=== PATIENT | female | born 2000 | race African-American/Black ===

== ENCOUNTER 2024-03-03 12:13 | Emergency (ER) | payer OTHER, SELFPAY ==
[2024-03-03 12:29] VITALS: BP 108/51; PULSE 81; RESP 16; TEMP 36.9; O2SAT 100; BMI 28.6
--- NOTE | 2024-03-03 12:37 | DI.US.S_ITS ---
PROCEDURE: US OB <= 14 WEEKS FETUS INDICATIONS: 12 wks preg, abd pain OUTSIDE/PRIOR DATING DATA: Last menstrual period (LMP): 12/07/2023. LMP-based estimated date of delivery (FAHEEM): 09/22/2024. First dating scan (date and location): 03/03/2024. Estimated date of delivery (FAHEEM) from first dating scan: 09/06/2024. TECHNIQUE: Real-time scanning was performed of the fetus and maternal pelvic organs, with image documentation. COMPARISON: None. FINDINGS: BPD: 2.1 cm, 13 week 2 day AC: 8.2 cm, 13 week 4 day HC: 6.8 cm, 13 week 3 day FL: 0.9 cm, 12 week 5 day EGA by dates: 12 week 3 day EGA by ultrasound: 13 week 2 day Heart rate: 160 beats per minute Maternal organs: Ovaries unremarkable. IMPRESSION: Single live intrauterine consistent with a 13 week 2 day gestation by current ultrasound Approved by: Alexi Brown M.D. on 03/03/2024 at 12:27
[2024-03-03 13:04] LABS: Add Manual Diff / Slide Review NO; Basophils Absolute Auto 0 /uL (0-100); Basophils Percent Auto 0.5 % (0-2); Eosinophils Absolute Auto 0 /uL (0-450); Eosinophils Percent Auto 0.1 % (2-4); Hematocrit 34.2 % (36-46); Hemoglobin 11.9 g/dL (12.0-16.0); Lymphocytes Absolute Auto 1300 /uL (1100-4500); Lymphocytes Percent Auto 39.3 % (25-40); Mean Corpuscular HGB Conc 34.7 % (30-36); Mean Corpuscular Hemoglobin 32.2 PG (26-34); Mean Corpuscular Volume 92.9 fL (80-100); Monocytes Absolute Auto 500 /uL (0-900); Monocytes Percent Auto 13.8 % (3-14); Neutrophils Absolute Auto 1500 /uL (1500-7000); Neutrophils Percent Auto 46.3 % (50-75); Platelet Count 248 X10^3/uL (150-400); Red Blood Cell Count 3.68 X10^6/uL (4.0-5.2); Red Cell Distribution Width 13.1 % (11.6-14.8); White Blood Cell Count 3.3 X10^3/uL (4.5-11.0)
[2024-03-03 13:16] LABS: Alanine Aminotransferase 17 IU/L (<35); Albumin 4.1 g/dL (3.5-5.0); Albumin Globulin Ratio 1.2 (1.0-2.8); Alkaline Phosphatase 75 U/L (38-126); Aspartate Aminotransferase 25 IU/L (14-36); BUN Creatinine Ratio 8.3 (6-22); Bilirubin Total 0.4 mg/dL (0.2-1.3); Blood Urea Nitrogen 4 mg/dL (7-17); Calcium 8.5 mg/dL (8.4-10.2); Carbon Dioxide 21 mmol/L (22-32); Chloride 106 mmol/L (98-107); Estimated Glomerular Filt Rate > 60 mL/min (>60); Globulin 3.3 g/dL (1.7-4.1); Glucose 71 mg/dL (70-100); HEMOLYSIS < 15 (0-50); Potassium 3.5 mmol/L (3.4-5.1); Sodium 134 mmol/L (137-145); Total Protein 7.4 g/dL (6.3-8.2)
[2024-03-03 13:57] LABS: HCG Quantitative /Beta subunit 66191 mIU/mL
[2024-03-03 14:08] LABS: Adenovirus Not Detected (Not Detect); B. parapertussis Not Detected (Not Detecte); Bordetella pertussis Not Detected (Not Detect); Chlamydophila pneumoniae Not Detected (Not Detect); Coronavirus 229E Not Detected (Not Detect); Coronavirus HKU1 Not Detected (Not Detect); Coronavirus NL 63 Not Detected (Not Detect); Coronavirus OC43 Not Detected (Not Detect); Human Metapneumovirus Not Detected (Not Detect); Human Rhinovirus/Enterovirus Not Detected (Not Detect); Influenza A Not Detected (Not Detect); Influenza B Not Detected (Not Detect); Mycoplasma pneumoniae Not Detected (Not Detect); Parainfluenza Virus 1 Not Detected (Not Detect); Parainfluenza Virus 2 Not Detected (Not Detect); Parainfluenza Virus 3 Not Detected (Not Detect); Parainfluenza Virus 4 Not Detected (Not Detect); Respiratory Syncytial Virus Not Detected (Not Detect); SARS- CoV-2 Detected (Not Detecte)
[2024-03-03 14:18] VITALS: BP 108/56; PULSE 76; RESP 16; O2SAT 100
--- NOTE | 2024-03-03 14:25 | ED_ITS ---
HPI - General Adult General Chief complaint: Abdominal Pain Stated complaint: 12 weeks, bilat abd pain Time Seen by Provider: 03/03/24 13:28 Source: patient, RN notes reviewed and old records reviewed Mode of arrival: Ambulatory Limitations: no limitations History of Present Illness HPI narrative: 23-year-old who presents with complaint of some bilateral abdominal discomfort that has been on and off for the past week. Patient also notes she has had nasal congestion, some headaches and felt like she was had an upper respiratory infection for the past 3 days. She states her significant other as well as child who is at bedside both recently has been ill as well. Patient states patient states no chest pain or shortness of breath. She has had nausea but no vomiting. States she has had nausea throughout her . States she was having little bit of diarrhea for several days but has not had a bowel movement in 2 or 3 days. Denies any dysuria urgency or frequency. No vaginal bleeding or spotting. Patient has had a prior positive test was told she was about 13 weeks and is in process of setting up with the care. Patient states vitamins only daily medication. No known drug allergies. No tobacco, alcohol or recreational drugs. Primary care his through the [facility] [employer] she just moved to the area in his seeking to set up care. Patient does note she had preeclampsia with her prior . Related Data Previous Rx's Medication Instructions Recorded fluticasone propionate 50 1 spray intranasal BID PRN nasal 03/03/24 mcg/actuation nasal congestion #16 grams spray,suspension (Flonase Allergy Relief) Allergies Allergy/AdvReac Type Severity Reaction Status Date / Time No Known Drug Allergies Allergy Verified 03/03/24 12:29 Review of Systems Review of Systems ROS Unobtainable: All systems reviewed & are unremarkable except as noted in HPI and below Patient History Social History Smoking Status: Former smoker Smoking Status: Former smoker Substance Use Type: does not use Exam Narrative Exam Narrative: GEN: well nourished, well appearing female, alert and oriented x 3, patient appears to be in mild distress. HEENT: Atraumatic, pupils are equal round reactive to light, extraocular movements are intact, patient has a nasal congestion there is no conjunctival pallor. HEART: Regular rate and rhythm without murmur, clicks, rubs. LUNGS:Lungs clear to auscultation, no wheezes, rales, crackles, chest moves symmetrically ABD:bowel sounds normal, soft, non-tender, no guarding, rebound, rigidity, no masses noted, no hepatosplenomegaly :No CVA tenderness MSCL: Full range of motion, normal gait NEURO:CN 2-12 intact Initial Vital Signs Initial Vital Signs: Vital Signs Temperature 98.5 F 03/03/24 12:29 Pulse Rate 81 03/03/24 12:29 Respiratory Rate 16 03/03/24 12:29 Blood Pressure 108/51 L 03/03/24 12:29 Pulse Oximetry 100 03/03/24 12:29 Oxygen Delivery Method Room Air 03/03/24 12:29 Course Orders Ordered: ED Orders 03/03/24 12:37 US OB <= 14 weeks fetus Stat 03/03/24 12:48 Complete Blood Count AUTO DIFF Stat Comprehensive Metabolic Panel Stat HCG Quantitative /Beta subunit Stat 03/03/24 13:16 Respiratory Panel (Film Array) Stat Vital Signs Vital signs: Vital Signs - 8 hr 03/03/24 12:29 03/03/24 14:18 Temperature 98.5 F Pulse Rate 81 76 Respiratory Rate 16 16 Blood Pressure 108/51 L 108/56 L Pulse Oximetry 100 100 Oxygen Delivery Method Room Air Room Air Medical Decision Making Lab Data 03/03/24 12:48 03/03/24 12:48 Labs: Lab Results 03/03/24 03/03/24 Range/Units 12:48 13:16 WBC 3.3 L (4.5-11.0) X10^3/uL RBC 3.68 L (4.0-5.2) X10^6/uL Hgb 11.9 L (12.0-16.0) g/dL Hct 34.2 L (36-46) % MCV 92.9 (80-100) fL MCH 32.2 (26-34) PG MCHC 34.7 (30-36) % RDW 13.1 (11.6-14.8) % Plt Count 248 (150-400) X10^3/uL Neut % (Auto) 46.3 L (50-75) % Lymph % (Auto) 39.3 (25-40) % [place] % (Auto) 13.8 (3-14) % Eos % (Auto) 0.1 L (2-4) % Baso % (Auto) 0.5 (0-2) % Neut # (Auto) 1500 (5092-8001) /uL Lymph # (Auto) 1300 (9350-9243) /uL [place] # (Auto) 500 (0-900) /uL Eos # (Auto) 0 (0-450) /uL Baso # (Auto) 0 (0-100) /uL Sodium 134 L (137-145) mmol/L Potassium 3.5 (3.4-5.1) mmol/L Chloride 106 (98-107) mmol/L Carbon Dioxide 21 L (22-32) mmol/L BUN 4 L (7-17) mg/dL Creatinine 0.48 L (0.52-1.04) mg/dL Estimated GFR > 60 (>60) mL/min BUN/Creatinine Ratio 8.3 (6-22) Glucose 71 (70-100) mg/dL Calcium 8.5 (8.4-10.2) mg/dL Total Bilirubin 0.4 (0.2-1.3) mg/dL AST 25 (14-36) IU/L ALT 17 (<35) IU/L Alkaline Phosphatase 75 (38-126) U/L Total Protein 7.4 (6.3-8.2) g/dL Albumin 4.1 (3.5-5.0) g/dL Globulin 3.3 (1.7-4.1) g/dL Albumin/Globulin Ratio 1.2 (1.0-2.8) HCG, Quant 74125 mIU/mL Chlamy pneumoniae PCR Not detected (Not Detect) Adenovirus (PCR) Not detected (Not Detect) B.parapertussis DNA PCR Not detected (Not Detecte) Coronavirus OC43 (PCR) Not detected (Not Detect) Coronavirus HKU1 (PCR) Not detected (Not Detect) Coronavirus 229E (PCR) Not detected (Not Detect) SARS-CoV-2 (PCR) Detected H (Not Detecte) Coronavirus NL63 (PCR) Not detected (Not Detect) Human Metapneumovir PCR Not detected (Not Detect) Influenza Type A (PCR) Not detected (Not Detect) Influenza Type B (PCR) Not detected (Not Detect) M. pneumoniae (PCR) Not detected (Not Detect) Parainfluenza 1 (PCR) Not detected (Not Detect) Parainfluenza 2 (PCR) Not detected (Not Detect) Parainfluenza 3 (PCR) Not detected (Not Detect) Parainfluenza 4 (PCR) Not detected (Not Detect) RSV (PCR) Not detected (Not Detect) Entero/Rhino (PCR) Not detected (Not Detect) Urine Dip Bedside Urine Glucose Negative Bedside Urine Bilirubin - Negative Bedside Urine Ketone +++ 80 Urine Specific [place] 1.020 Bedside Urine Occult Blood - Negative Bedside Urine pH 6.0 Bedside Urine Protein - Negative Bedside Urine Urobilinogen - Negative Bedside Urine Nitrite - Negative Bedside Urine Leukocytes - Negative Esterase Point of care testing: Urine Dip Bedside Urine Glucose Negative Bedside Urine Bilirubin - Negative Bedside Urine Ketone +++ 80 Urine Specific [place] 1.020 Bedside Urine Occult Blood - Negative Bedside Urine pH 6.0 Bedside Urine Protein - Negative Bedside Urine Urobilinogen - Negative Bedside Urine Nitrite - Negative Bedside Urine Leukocytes - Negative Esterase Imaging Data US - abdomen: Radiologist's Impression: [address] [address] Ultrasound Report Signed Patient: Bao Maradiaga MR#: [id number] : 2000 Acct:[id number] Age/Sex: 23 / F Date of Service: 03/03/24 Loc: ED Accession Number: [id number] Procedure: US OB <= 14 weeks fetus Ordering Provider: Traci Greene D.O. PROCEDURE: US OB <= 14 WEEKS FETUS INDICATIONS: 12 wks preg, abd pain OUTSIDE/PRIOR DATING DATA: Last menstrual period (LMP): 12/07/2023. LMP-based estimated date of delivery (FAHEEM): 09/22/2024. First dating scan (date and location): 03/03/2024. Estimated date of delivery (FAHEEM) from first dating scan: 09/06/2024. TECHNIQUE: Real-time scanning was performed of the fetus and maternal pelvic organs, with image documentation. COMPARISON: None. FINDINGS: BPD: 2.1 cm, 13 week 2 day AC: 8.2 cm, 13 week 4 day HC: 6.8 cm, 13 week 3 day FL: 0.9 cm, 12 week 5 day EGA by dates: 12 week 3 day EGA by ultrasound: week 2 day Heart rate: 160 beats per minute Maternal organs: Ovaries unremarkable. IMPRESSION: Single live intrauterine consistent with a 13 week 2 day gestation by current ultrasound Approved by: Alexi Brown M.D. on 03/03/2024 at 12:27 MDM Narrative Medical decision making narrative: White count of 3.3 hemoglobin 11.9 platelets of 248. Sodium 134 CO2 of 21 BUN 4 creatinine 0.48 potassium of 3.5 chloride of 106 glucose of 71 LFTs are negative hCG quant is 66,191. Plan of care urine shows ketones, no nitrates or leuks. Respiratory panel positive for COVID. US OB, single live intrauterine consistent with 13 weeks and 2 days' gestation, heart rates 160 beats per minute ovaries are unremarkable. 23-year-old female dates consistent with ultrasound approximately 13 weeks 2 days' gestation, labs overall appropriate does have some ketones in urine, is positive for COVID and has upper respiratory symptoms but otherwise well- appearing. We will give copy of patient's labs, ultrasound imaging and notes so patient can set up care. Discussed can give Tylenol for fevers, can do Flonase prescription for nasal congestion and return precautions reviewed. Discharge Plan Departure Patient Disposition: Home Clinical Impression: COVID-19 virus infection, Instructions: DI for COVID-19 (Suspected or Confirmed ) Activity Restrictions/Additional Instructions: You did test positive for COVID today. This is a viral illness that is typically last 7-10 days total. You can take Tylenol up to a 1000 mg every 6 hours as needed for fevers or discomfort. You can use Flonase intranasally twice daily for nasal congestion. Prescription is included in your discharge paperwork. Your labs and ultrasound do confirm your per ultrasound today you would be approximately 13 weeks and 2 days with a estimated date of delivery of September 06, 2024. A copy of your labs and ultrasound are included in your discharge paperwork. Please call to set up care, contact included below for OBGYN here at [facility] Please return if you are having any new or worsening difficulty with breathing, chest pain, shortness of breath, passing out, new or worsening abdominal back or flank pain, vaginal bleeding, persistent vomiting or other new or concerning changes. Prescriptions: New fluticasone propionate [Flonase Allergy Relief] 50 mcg/actuation spray,suspension 1 spray intranasal BID PRN (Reason: nasal congestion) Qty: 16 0RF Rx Instructions: administer into each nostril Referrals: Max Castro MD [Physician] - Stand Alone Forms: Patient Portal/API
== END 2024-03-03 14:55 | disposition home or self-care (01) ==
PROVIDERS: Emergency Provider Emergency Medicine
DX: U07.1 COVID-19 (principal); R10.9 Unspecified abdominal pain; Z3A.13 13 weeks gestation of pregnancy
CPT/HCPCS: 36415; 76801; 80053; 81003; 84702; 85025; 87633; 99284

== ENCOUNTER 2024-03-09 20:28 | Emergency (ER) | payer OTHER, SELFPAY ==
[2024-03-09 20:41] VITALS: BP 123/73; PULSE 81; RESP 17; TEMP 37.1; O2SAT 100; BMI 29.1
--- NOTE | 2024-03-09 21:21 | ED.DENTAL ---
HPI - Dental/Oral General Chief complaint: Dental/Oral Stated complaint: mouth pain/head pain Time Seen by Provider: 03/09/24 21:15 Source: patient Mode of arrival: Ambulatory History of Present Illness HPI Narrative: 23-year-old female presents for right-sided facial swelling and pain. Patient states that she started to have dental pain in her right upper mouth yesterday and went to the dental clinic, where she was prescribed t.i.d. amoxicillin. States that she mentioned some sinus pain at that time, but she was told to heat up rice in his sock and put it on her face. No medications taken at home for symptoms. Patient was concerned that her sinuses may be infected. Related Data Previous Rx's Medication Instructions Recorded fluticasone propionate 50 1 spray intranasal BID PRN nasal 03/03/24 mcg/actuation nasal congestion #16 grams spray,suspension (Flonase Allergy Relief) Allergies Allergy/AdvReac Type Severity Reaction Status Date / Time No Known Drug Allergies Allergy Verified 03/03/24 12:29 Patient History Social History Smoking Status: Former smoker Smoking Status: Former smoker Substance Use Type: does not use Exam Initial Vital Signs Initial Vital Signs: Vital Signs Temperature 98.7 F 03/09/24 20:41 Pulse Rate 81 03/09/24 20:41 Respiratory Rate 17 03/09/24 20:41 Blood Pressure 123/73 03/09/24 20:41 Pulse Oximetry 100 03/09/24 20:41 Oxygen Delivery Method Room Air 03/09/24 20:41 Const: Awake, alert, no acute distress, nontoxic appearing Dental: Dental caries maxillary right teeth, no gum swelling, no abscess Skin: Warm, Dry, intact, no rashes Neuro: AO x3, CN II-XII grossly intact, moves all extremities Course Orders Ordered: Discontinued Medications Acetaminophen (Acetaminophen 325 Mg Tablet) 975 mg PO NOW ONE Stop: 03/09/24 22:20 Last Admin: 03/09/24 22:24 Dose: 975 mg Documented By: THERESA Dexamethasone (Dexamethasone 10 Mg/Ml Vial) 10 mg PO NOW ONE Stop: 03/09/24 22:20 Last Admin: 03/09/24 22:24 Dose: 10 mg Documented By: THERESA Vital Signs Vital signs: Vital Signs - 8 hr 03/09/24 20:41 Temperature 98.7 F Pulse Rate 81 Respiratory Rate 17 Blood Pressure 123/73 Pulse Oximetry 100 Oxygen Delivery Method Room Air MDM - Dental/Oral Differential Diagnosis Differential diagnosis: Likely gingival abscess, dental caries and toothache MDM Narrative Medical decision making narrative: Dental pain with facial swelling. There is minimal swelling appreciable on the face on very close inspection, however it was not very obvious. Dental caries present, no drainable abscess. Patient has been on antibiotics for less than 24 hours. Low suspicion for sinus infection at this time. Patient given dose of steroids, counseled to continue taking the amoxicillin as prescribed by the dental clinic. Tylenol recommended for pain. Discharge Plan Departure Patient Disposition: Home Clinical Impression: Toothache, Facial swelling Instructions: DI for Dental Pain Activity Restrictions/Additional Instructions: Continue to take your antibiotics as prescribed. Tylenol can be taken for pain as needed. Mucinex can be taken to thin your mucous and help you clear your sinuses better. You can also use over the counter saline sprays. Prescriptions: No Action fluticasone propionate [Flonase Allergy Relief] 50 mcg/actuation spray,suspension 1 spray intranasal BID PRN (Reason: nasal congestion) Qty: 16 0RF Rx Instructions: administer into each nostril Stand Alone Forms: Patient Portal/API
[2024-03-09] MEDS: ACETAMINOPHEN 325 MG TABLET 975 MG PO (22:24)
[2024-03-09] MEDS: DEXAMETHASONE 10 MG/ML VIAL PO (22:24)
[2024-03-09 22:31] VITALS: BP 121/73; PULSE 79; RESP 16; O2SAT 100
== END 2024-03-09 22:32 | disposition home or self-care (01) ==
PROVIDERS: Emergency Provider Emergency Medicine
DX: K08.89 Other specified disorders of teeth and supporting structures (principal); R22.0 Localized swelling, mass and lump, head
CPT/HCPCS: 99283; J1100

== ENCOUNTER 2025-01-01 08:30 | Emergency (ER) | payer OTHER, SELFPAY ==
[2025-01-01 08:43] VITALS: BP 138/65; PULSE 67; RESP 20; TEMP 36.9; O2SAT 100; BMI 28.8
[2025-01-01 08:53] VITALS: BP 138/65; PULSE 68; TEMP 36.9; O2SAT 100
--- NOTE | 2025-01-01 09:06 | ED_ITS ---
HPI - Psych General Chief Complaint: Psychiatric Symptoms Stated Complaint: SI Time Seen by Provider: 01/01/25 08:40 Source: patient Mode of arrival: Ambulatory History of Present Illness HPI Narrative: 24-year-old , 4 months complaining of increasing depression, feelings of hopeless and helplessness, difficulty sleeping, eating, coping with life and she is beginning to consider suicide as an option. The reason that she would not kill herself is that she does want to watch her 2 children grow up. There are significant psychosocial stressors, she is currently to a gentleman in the , they had multiple moves, there is significant marital strain, does not have a primary care physician in town, has minimal social support with the frequent moves, maybe moving back to [place] within the next weeks to months. She does have a history of depression with her 1st child that went untreated. She is open to the idea of medical management, inpatient stay to make sure medications are working. It is unclear if she will be in town long enough to actually establish with a primary care physician or a counselor prior to being transferred but she is wanting to do both of those. she states that she was diagnosed with depression and anxiety at the age of 13 and has not tried medications Related Data Previous Rx's Medication Instructions Recorded fluticasone propionate 50 1 spray intranasal BID PRN nasal 03/03/24 mcg/actuation nasal congestion #16 grams spray,suspension (Flonase Allergy Relief) Allergies Allergy/AdvReac Type Severity Reaction Status Date / Time No Known Drug Allergies Allergy Verified 03/03/24 12:29 Review of Systems Review of Systems Narrative: Pertinent positive and negative findings as per HPI Patient History Medical History (Updated 01/01/25 @ 09:47 by Ellen Mckinley MD) depression Social History Smoking Status: Never smoker Smoking Status: Never smoker Exam Initial Vital Signs Initial Vital Signs: Vital Signs Temperature 98.5 F 01/01/25 08:43 Pulse Rate 67 01/01/25 08:43 Respiratory Rate 20 01/01/25 08:43 Blood Pressure 138/65 01/01/25 08:43 Pulse Oximetry 100 01/01/25 08:43 Oxygen Delivery Method Room Air 01/01/25 08:43 General: Healthy appearing, Able to give a complete and coherent history. Well-nourished well-developed HEENT: Moist mucous membranes, normal sclera with reactive pupils, Respiratory: Lungs are clear to auscultation, no wheezing no rales no rhonchi. Full and symmetrical air movement Cardiac: Regular rate and rhythm no murmurs no bruits Abdomen: Soft, nontender, no rebound or guarding, no flank pain Skin: Warm and dry, no rashes Neurologic: Grossly neurologically intact with no obvious asymmetries or abnormalities Extremities: No trauma, well perfused Psych: Cooperative, flat affect, poor eye contact, fluent speech no response to internal stimuli Course Orders Ordered: ED Orders 01/01/25 08:51 Test Urine Stat Urinalysis and Microscopic Stat Urine Drug Screen, Rapid Stat 01/01/25 09:11 Consult to [facility] [place] [facility] [employer] Stat EKG-12 Lead Stat 01/01/25 09:40 Comprehensive Metabolic Panel Stat Ethanol (ETOH) Stat TSH w/ Reflex to FT4 Stat 01/01/25 10:07 Complete Blood Count AUTO DIFF Stat Sertraline HCl (Sertraline 50 Mg Tablet) 25 mg PO NOW ONE Stop: 01/01/25 13:16 Discontinued Medications Lorazepam (Lorazepam 0.5 Mg Tablet) 1 mg PO NOW ONE Stop: 01/01/25 13:06 Vital Signs Vital signs: Vital Signs - 8 hr 01/01/25 08:43 01/01/25 08:53 01/01/25 13:02 Temperature 98.5 F 98.5 F Pulse Rate 67 68 62 Respiratory Rate 20 Blood Pressure 138/65 138/65 119/75 Pulse Oximetry 100 100 100 Oxygen Delivery Method Room Air Room Air Room Air MDM - Psych Lab Data 01/01/25 10:07 01/01/25 09:40 Labs: Lab Results 01/01/25 01/01/25 01/01/25 Range/Units 08:51 08:51 09:40 WBC (4.5-11.0) X10^3/uL RBC (4.0-5.2) X10^6/uL Hgb (12.0-16.0) g/dL Hct (36-46) % MCV (80-100) fL MCH (26-34) PG MCHC (30-36) % RDW (11.6-14.8) % Plt Count (150-400) X10^3/uL Neut % (Auto) (50-75) % Lymph % (Auto) (25-40) % [place] % (Auto) (3-14) % Eos % (Auto) (2-4) % Baso % (Auto) (0-2) % Neut # (Auto) (6965-5997) /uL Lymph # (Auto) (4298-2049) /uL [place] # (Auto) (0-900) /uL Eos # (Auto) (0-450) /uL Baso # (Auto) (0-100) /uL Sodium 137 (137-145) mmol/L Potassium 3.9 (3.4-5.1) mmol/L Chloride 108 H (98-107) mmol/L Carbon Dioxide 22 (22-32) mmol/L BUN 7 (7-17) mg/dL Creatinine 0.63 (0.52-1.04) mg/dL Estimated GFR > 60 (>60) mL/min BUN/Creatinine Ratio 11.1 (6-22) Glucose 96 (70-99) mg/dL Calcium 9.1 (8.4-10.2) mg/dL Total Bilirubin 0.7 (0.2-1.3) mg/dL AST 23 (14-36) IU/L ALT 19 (<35) IU/L Alkaline Phosphatase 81 (38-126) U/L Total Protein 7.0 (6.3-8.2) g/dL Albumin 4.3 (3.5-5.0) g/dL Globulin 2.7 (1.7-4.1) g/dL Albumin/Globulin Ratio 1.6 (1.0-2.8) TSH 1.21 (0.47-4.68) uIU/mL Urine Color Yellow Urine Appearance Clear Urine pH 6.0 Normal (4.5-8.0) Ur Specific [place] 1.025 (1.000-1.035) Urine Protein Negative (Negative) Urine Glucose (UA) Negative (Negative) g/dL Urine Ketones Trace H (NEGATIVE) Urine Occult Blood Negative (Negative) Urine Nitrate Negative (Negative) Urine Bilirubin Negative (NEGATIVE) Urine Urobilinogen 0.2 (0.2) E.U./dL Ur Leukocyte Esterase Negative (NEGATIVE) Urine RBC None seen (0-5/HPF) Urine WBC None seen (0-5/HPF) Ur Squamous Epith Cells 1-5 /hpf (0-5/HPF) Urine Bacteria None seen (None) Ur Culture Indicated? Cult not indicated Vol Urine Centrifuged 10ml (spun) Urine Test Negative (Negative) U Opiates 300ng/mL cut Negative (Negative) Ur Oxycodone Screen Negative (Negative) Urine Methadone Screen Negative (Negative) Ur Barbiturates Screen Negative (Negative) U Tricyclic Antidepress Negative (Negative) Ur Phencyclidine Scrn Negative (Negative) Ur Amphetamines Screen Negative (Negative) U Methamphetamines Scrn Negative (Negative) Ur MDMA Scrn (Ecstasy) Negative (Negative) U Benzodiazepines Scrn Negative (Negative) Urine Cocaine Screen Negative (Negative) U Marijuana (THC) Screen Positive H (Negative) Urine Specific [place] Normal (Normal) Ethyl Alcohol < 10 (<10) mg/dL Ur Creatinine Normal (Normal) 01/01/25 Range/Units 10:07 WBC 4.2 L (4.5-11.0) X10^3/uL RBC 3.89 L (4.0-5.2) X10^6/uL Hgb 12.1 (12.0-16.0) g/dL Hct 36.0 (36-46) % MCV 92.4 (80-100) fL MCH 31.1 (26-34) PG MCHC 33.7 (30-36) % RDW 13.7 (11.6-14.8) % Plt Count 251 (150-400) X10^3/uL Neut % (Auto) 60.2 (50-75) % Lymph % (Auto) 32.3 (25-40) % [place] % (Auto) 6.7 (3-14) % Eos % (Auto) 0.1 L (2-4) % Baso % (Auto) 0.7 (0-2) % Neut # (Auto) 2500 (9264-6539) /uL Lymph # (Auto) 1300 (1608-6088) /uL [place] # (Auto) 300 (0-900) /uL Eos # (Auto) 0 (0-450) /uL Baso # (Auto) 0 (0-100) /uL Sodium (137-145) mmol/L Potassium (3.4-5.1) mmol/L Chloride (98-107) mmol/L Carbon Dioxide (22-32) mmol/L BUN (7-17) mg/dL Creatinine (0.52-1.04) mg/dL Estimated GFR (>60) mL/min BUN/Creatinine Ratio (6-22) Glucose (70-99) mg/dL Calcium (8.4-10.2) mg/dL Total Bilirubin (0.2-1.3) mg/dL AST (14-36) IU/L ALT (<35) IU/L Alkaline Phosphatase (38-126) U/L Total Protein (6.3-8.2) g/dL Albumin (3.5-5.0) g/dL Globulin (1.7-4.1) g/dL Albumin/Globulin Ratio (1.0-2.8) TSH (0.47-4.68) uIU/mL Urine Color Urine Appearance Urine pH (4.5-8.0) Ur Specific [place] (1.000-1.035) Urine Protein (Negative) Urine Glucose (UA) (Negative) g/dL Urine Ketones (NEGATIVE) Urine Occult Blood (Negative) Urine Nitrate (Negative) Urine Bilirubin (NEGATIVE) Urine Urobilinogen (0.2) E.U./dL Ur Leukocyte Esterase (NEGATIVE) Urine RBC (0-5/HPF) Urine WBC (0-5/HPF) Ur Squamous Epith Cells (0-5/HPF) Urine Bacteria (None) Ur Culture Indicated? Vol Urine Centrifuged Urine Test (Negative) U Opiates 300ng/mL cut (Negative) Ur Oxycodone Screen (Negative) Urine Methadone Screen (Negative) Ur Barbiturates Screen (Negative) U Tricyclic Antidepress (Negative) Ur Phencyclidine Scrn (Negative) Ur Amphetamines Screen (Negative) U Methamphetamines Scrn (Negative) Ur MDMA Scrn (Ecstasy) (Negative) U Benzodiazepines Scrn (Negative) Urine Cocaine Screen (Negative) U Marijuana (THC) Screen (Negative) Urine Specific [place] (Normal) Ethyl Alcohol (<10) mg/dL Ur Creatinine (Normal) MDM Narrative Medical decision making narrative: 24-year-old 4 months with worsening depression and suicidal ideation. Significant psychosocial stressors in addition to the hormonal shifts. She is open to medication but I believe a brief inpatient stay to make sure she is tolerating medication as well as allow for a couple of full nights of sleep will probably be very effective. She will need help in establishing care with a primary care provider and a counselor. with shared decision-making today,We will start her on 25 mg of Zoloft and see if inpatient voluntary admission is a possibility. She currently does have care for her children at home, she is not currently Medical workup: urine is unremarkable no evidence of urine tox screen is positive for marijuana CBC is unremarkable chemistries are unremarkable TSH is appropriate EKG shows sinus rhythm at a rate of 58 with a QTC of 416 discussion: 24-year-old woman with a worsening depression with multiple compounding psychosocial stressors. Patient has been accepted to [facility] for voluntary admission. She was given an initial dose of 25 mg of Zoloft this morning. She is safe for transfer to care facility 1pm Transport here. She requests something to help with anxiety for transport. She is given 1mg of oral Ativan Discharge Plan Departure Patient Disposition: Xfer Psychiatric Hosp Clinical Impression: Depression, , Suicidal ideation Prescriptions: No Action fluticasone propionate [Flonase Allergy Relief] 50 mcg/actuation spray,suspension 1 spray intranasal BID PRN (Reason: nasal congestion) Qty: 16 0RF Rx Instructions: administer into each nostril
--- NOTE | 2025-01-01 09:27 | EKG_ITS ---
[address] [address] Test Date: 2025-01-01 Pat Name: Bao Maradiaga Department: [facility] Room: Gender: Female Engraver Seals: EMRE : 2000 Requested By: Order Number: [id number] Reading MD: Trevin Romero Measurements Intervals [place] Rate: 58 P: 24 TN: 220 QRS: 77 QRSD: 76 T: 42 QT: 424 QTc: 416 Interpretive Statements Sinus bradycardia with 1st degree AV block with premature supraventricular complexes Electronically Signed On 01-01-2025 14:01:25 PDT by Trevin Romero
[2025-01-01 09:30] LABS: Ur Creatinine Normal (Normal); Ur Specific Gravity Normal (Normal); Urine Amphetamines Negative (Negative); Urine Barbiturates Negative (Negative); Urine Benzodiazepines Negative (Negative); Urine Cocaine Negative (Negative); Urine MDMA Negative (Negative); Urine Methadone Negative (Negative); Urine Opiates Negative (Negative); Urine Oxycodone Negative (Negative); Urine Phencyclidine Negative (Negative); Urine THC Positive (Negative); Urine Tricyclic Antidepressant Negative (Negative); Urine pH Normal (Normal)
[2025-01-01 09:38] LABS: Appearance Urine UA CLEAR; Bilirubin Urine UA NEGATIVE (NEGATIVE); Color Urine UA YELLOW; Glucose Urine UA NEGATIVE (Negative); Ketones Urine UA TRACE (NEGATIVE); Leukocyte Esterase Urine UA NEGATIVE (NEGATIVE); Nitrite Urine UA NEGATIVE (Negative); Occult Blood Urine UA NEGATIVE (Negative); Pregnancy Test Urine Negative (Negative); Protein Urine UA NEGATIVE (Negative); Specific Gravity Urine UA 1.025 (1.000-1.035); Urobilinogen Urine UA 0.2 E.U./dL (0.2)
[2025-01-01 09:39] LABS: Urine Volume 10mL (spun)
[2025-01-01 09:40] LABS: Bacteria Urine None Seen; Culture Indicated Urine Cult Not Indicated; RBC Urine None Seen (0-5/HPF); Squamous Epithelial Cell Urine 1-5 /HPF (0-5/HPF); WBC Urine None Seen (0-5/HPF)
[2025-01-01 10:06] LABS: Alanine Aminotransferase 19 IU/L (<35); Albumin 4.3 g/dL (3.5-5.0); Albumin Globulin Ratio 1.6 (1.0-2.8); Alkaline Phosphatase 81 U/L (38-126); Aspartate Aminotransferase 23 IU/L (14-36); BUN Creatinine Ratio 11.1 (6-22); Bilirubin Total 0.7 mg/dL (0.2-1.3); Blood Urea Nitrogen 7 mg/dL (7-17); Calcium 9.1 mg/dL (8.4-10.2); Carbon Dioxide 22 mmol/L (22-32); Chloride 108 mmol/L (98-107); Estimated Glomerular Filt Rate > 60 mL/min (>60); Ethanol (ETOH) < 10 mg/dL (<10); Globulin 2.7 g/dL (1.7-4.1); Glucose 96 mg/dL (70-99); HEMOLYSIS < 15 (0-50); Potassium 3.9 mmol/L (3.4-5.1); Sodium 137 mmol/L (137-145)
[2025-01-01 10:16] LABS: Add Manual Diff / Slide Review NO; Basophils Absolute Auto 0 /uL (0-100); Basophils Percent Auto 0.7 % (0-2); Eosinophils Absolute Auto 0 /uL (0-450); Eosinophils Percent Auto 0.1 % (2-4); Hemoglobin 12.1 g/dL (12.0-16.0); Lymphocytes Absolute Auto 1300 /uL (1100-4500); Lymphocytes Percent Auto 32.3 % (25-40); Mean Corpuscular HGB Conc 33.7 % (30-36); Mean Corpuscular Hemoglobin 31.1 PG (26-34); Mean Corpuscular Volume 92.4 fL (80-100); Monocytes Absolute Auto 300 /uL (0-900); Monocytes Percent Auto 6.7 % (3-14); Neutrophils Absolute Auto 2500 /uL (1500-7000); Neutrophils Percent Auto 60.2 % (50-75); Platelet Count 251 X10^3/uL (150-400); Red Blood Cell Count 3.89 X10^6/uL (4.0-5.2); Red Cell Distribution Width 13.7 % (11.6-14.8); White Blood Cell Count 4.2 X10^3/uL (4.5-11.0)
[2025-01-01 10:37] LABS: TSH w/ Reflex to FT4 1.21 uIU/mL (0.47-4.68)
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
--- NOTE | 2025-01-01 11:24 | PC.NURSE ---
CHURCH SUPERVISOR Note: Patient accepted to [facility] at 1115. Provider is Lynda. Bed ready at 1400. NWA scheduled to arrive at at 1300 for transport.
--- NOTE | 2025-01-01 11:32 | PC.NURSE ---
Addendum entered by Christy Hancock R.N. 01/01/25 11:52: RN spoke with pt about contacting [facility] ombudsman, squadron leader, [place] [employer] [facility] and [facility] electroneurodiagnostic technician to assist with family resources & childcare during inpatient mental health stay. Pt states that tried to contact persons listed and reports that listed individuals are not available to help. RN offered to take numbers and call as well, but resistant to provide phone numbers for resource personel. RN expressed importance of mental health treatment and that [place] similar situations. Pt stated that she will continue to speak with . title i teacher & doctor notified of situation. Original Note: Pt arrived to ED via EMS after having SI. Pt has been experiencing significant stress and marital issues at home. and gave 08/2024. Pt has hx of PPD w/SI. Pt in and pt does not have family here for support. Denies active SI/HI but states that she has vague thoughts of not wanting to be alive. Pt very tearful. States that her and her have been arguing and their relationship has been strained since he started to process out of . States that is very mean and belittling when he gets angry and accuses her of things that she did not do. Pt admittedly reached out to an ex because she felt as though she did not have anyone to talk to about what has been going on in her life. Pt is open to idea of inpatient mental health treatment for PPD. Pt states that she feels very overwhelmed with motherhood right now and that she does not have anyone to turn to. Pt has acceptance for inpatient tx at [facility] for PPD but expresses concerns regarding childcare. Pt is concerned that her will not be able to get time off to take care of children while she is receiving treatment. Pt a&Ox4.
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
[2025-01-01 13:02] VITALS: BP 119/75; PULSE 62; O2SAT 100
[2025-01-01] MEDS: LORazepam 0.5 MG TABLET 1 MG PO (13:11)
[2025-01-01] MEDS: SERTRALINE 50 MG TABLET 25 MG PO (13:14)
== END 2025-01-01 13:15 ==
PROVIDERS: Emergency Provider Emergency Medicine
DX: F53.0 Postpartum depression (principal); R45.851 Suicidal ideations
CPT/HCPCS: 36415; 80053; 80305; 80320; 81001; 81025; 84443; 85025; 93005; 99284

== ENCOUNTER 2025-01-29 22:31 | Emergency (ER) | payer OTHER, SELFPAY ==
[2025-01-29 22:44] VITALS: BP 124/56; PULSE 75; RESP 16; TEMP 36.6; O2SAT 100
[2025-01-29 22:49] VITALS: BP 124/56; PULSE 75; RESP 16; TEMP 36.6; O2SAT 100; BMI 29.6
--- NOTE | 2025-01-29 22:51 | DI.RAD.S_ITS ---
PROCEDURE: XR FOOT LT MIN 3V INDICATIONS: injury/pain TECHNIQUE: 3 views of the foot were acquired. COMPARISON: [facility], CR, XR ANKLE LT MIN 3V, 01/29/2025, 22:48. FINDINGS: Bones: No fractures or dislocations. No suspicious bony lesions. Soft tissues: No tibiotalar joint effusion. Achilles tendon appears normal. IMPRESSION: No visualized acute fracture or dislocation. However, if clinical concern and/or pain persist, short interval imaging followup in 7-10 days is recommended, as occult injury cannot be definitively excluded. Dictated by: Ella Lock M.D. on 01/29/2025 at 23:20 Approved by: Ella Lock M.D. on 01/29/2025 at 23:21
--- NOTE | 2025-01-29 22:51 | DI.RAD.S_ITS ---
PROCEDURE: XR ANKLE LT MIN 3V INDICATIONS: injury/pain TECHNIQUE: 3 views of the ankle were acquired. COMPARISON: [facility], , XR FOOT LT MIN 3V, 01/29/2025, 22:48. FINDINGS: Bones: No fractures or dislocations. Ankle mortise is normally aligned. No suspicious bony lesions. Soft tissues: No tibiotalar joint effusion. Achilles tendon appears normal. IMPRESSION: No visualized acute fracture or dislocation. However, if clinical concern and/or pain persist, short interval imaging followup in 7-10 days is recommended, as occult injury cannot be definitively excluded. Dictated by: Ella Lock M.D. on 01/29/2025 at 23:19 Approved by: Ella Lock M.D. on 01/29/2025 at 23:20
[2025-01-30] MEDS: ACETAMINOPHEN 325 MG TABLET 975 MG PO (01:09)
[2025-01-30] MEDS: IBUPROFEN 400 MG TABLET 800 MG PO (01:09)
--- NOTE | 2025-01-30 02:06 | ED.LOWEXIN ---
HPI - Extremity Injury (Lower) General Chief Complaint: Extremity Injury, Lower Stated Complaint: L Foot Injury Time Seen by Provider: 01/30/25 02:06 Source: patient Mode of arrival: Wheelchair History of Present Illness HPI Narrative: 24-year-old female kicked counter with her left foot in anger earlier today, painful, unable to bear weight. No knee pain or thigh pain or hip pain. No medications tried. No skin abrasions or bleeding wounds. She has pain to dorsum of her left foot and also around the area of her left ankle. Related Data Previous Rx's ?Medication ?Instructions ?Recorded fluticasone propionate 50 1 spray intranasal BID PRN nasal 03/03/24 mcg/actuation nasal congestion #16 grams spray,suspension (Flonase Allergy Relief) Allergies Allergy/AdvReac Type Severity Reaction Status Date / Time No Known Drug Allergies Allergy Verified 01/29/25 22:49 Patient History Medical History (Updated 01/30/25 @ 02:47 by Eyad Kelley MD) depression Social History Smoking Status: Current every day smoker Smoking Status: Current every day smoker tobacco type: cigarettes Exam Narrative Exam Narrative: GENERAL: Well-developed patient, in mild distress. HEAD: Atraumatic. Normocephalic. EYES: Pupils equal round and reactive. Extraocular motions intact. No scleral icterus. No injection or drainage. ENT: Nose without bleeding, purulent drainage. Throat without erythema, tonsillar hypertrophy or exudate. Airway patent. NECK: Trachea midline. Non tender CARDIOVASCULAR: Regular rate and rhythm without murmurs, gallops, or rubs. RESPIRATORY: Clear to auscultation. Breath sounds equal bilaterally. No wheezes, rales, or rhonchi. GASTROINTESTINAL: Abdomen soft, non-tender, nondistended. EXTREMITIES: Tenderness swelling to left dorsum of foot. No tenderness medial or lateral joint line ankle, no gross deformity. No gross deformity nor tenderness left foreleg, knee. BACK: Nontender without deformity or crepitance. No flank tenderness. NEURO: AOx3. Motor functions grossly nonfocal SKIN: No rash or erythema of visible areas Initial Vital Signs Initial Vital Signs: Vital Signs Temperature 98 F 01/29/25 22:44 Pulse Rate 75 01/29/25 22:44 Respiratory Rate 16 01/29/25 22:44 Blood Pressure 124/56 L 01/29/25 22:44 Pulse Oximetry 100 01/29/25 22:44 Oxygen Delivery Method Room Air 01/29/25 22:44 Course Orders Ordered: ED Orders 01/29/25 22:51 XR ankle LT min 3V Stat XR foot LT min 3V Stat Discontinued Medications Acetaminophen (Acetaminophen 325 Mg Tablet) 975 mg PO NOW ONE Stop: 01/30/25 00:58 Last Admin: 01/30/25 01:09 Dose: 975 mg Documented By: JUAN PABLO Ibuprofen (Ibuprofen 400 Mg Tablet) 800 mg PO NOW ONE Stop: 01/30/25 00:58 Last Admin: 01/30/25 01:09 Dose: 800 mg Documented By: JUAN PABLO Vital Signs Vital signs: Vital Signs - 8 hr 01/30/25 02:11 01/30/25 02:11 01/30/25 02:30 Pulse Rate 75 67 Respiratory Rate 17 Blood Pressure 118/53 L Pulse Oximetry 99 99 Oxygen Delivery Method Room Air MDM - Extremity Injury (Lower) Imaging Data Extremity x-ray #1: Radiologist's Impression: Close Ankle X-Ray (Signed) Ella Lock - 01/29/25 Foot X-Ray (Signed) Ella Lock - 01/29/25 Launch?[place] [address] XRay Report Signed Patient: Bao Maradiaga MR#: [id number] : 2000 Acct:[id number] Age/Sex: 24 / F Date of Service: 01/29/25 Loc: ED Accession Number: [id number] Procedure: XR foot LT min 3V Ordering Provider: Eyad Kelley MD PROCEDURE: XR FOOT LT MIN 3V INDICATIONS: injury/pain TECHNIQUE: 3 views of the foot were acquired. COMPARISON: [facility], , XR ANKLE LT MIN 3V, 01/29/2025, 22:48. FINDINGS: Bones: No fractures or dislocations. No suspicious bony lesions. Soft tissues: No tibiotalar joint effusion. Achilles tendon appears normal. IMPRESSION: No visualized acute fracture or dislocation. However, if clinical concern and/or pain persist, short interval imaging followup in 7-10 days is recommended, as occult injury cannot be definitively excluded. Dictated by: Ella Lock M.D. on 01/29/2025 at 23:20 Approved by: Ella Lock M.D. on 01/29/2025 at 23:21 Extremity x-ray #2: Radiologist's Impression: Close Ankle X-Ray (Signed) Ella Lock - 01/29/25 Foot X-Ray (Signed) Ella Lock - 01/29/25 Launch?Image [address] [address] XRay Report Signed Patient: Bao Maradiaga MR#: [id number] : 2000 Acct:[id number] Age/Sex: 24 / F Date of Service: 01/29/25 Loc: ED Accession Number: [id number] Procedure: XR ankle LT min 3V Ordering Provider: Eyad Kelley MD PROCEDURE: XR ANKLE LT MIN 3V INDICATIONS: injury/pain TECHNIQUE: 3 views of the ankle were acquired. COMPARISON: [facility], XR FOOT LT MIN 3V, 01/29/2025, 22:48. FINDINGS: Bones: No fractures or dislocations. Ankle mortise is normally aligned. No suspicious bony lesions. Soft tissues: No tibiotalar joint effusion. Achilles tendon appears normal. IMPRESSION: No visualized acute fracture or dislocation. However, if clinical concern and/or pain persist, short interval imaging followup in 7-10 days is recommended, as occult injury cannot be definitively excluded. Dictated by: Ella Lock M.D. on 01/29/2025 at 23:19 Approved by: Ella Lock M.D. on 01/29/2025 at 23:20 [facility] Narrative Medical decision making narrative: 44-year-old female kicked counter in anger earlier today, with left foot and ankle pain. Screening x-rays negative for fracture foot or ankle. Patient unable to bear weight due to pain. We will placed in walking boot with crutches. Advised use of Tylenol and or Motrin as needed for pain control. Recheck with regular provider advised in 2 days. Return precautions discussed. Discharged home with family. Discharge Plan Departure Patient Disposition: Home Clinical Impression: Contusion of right foot, Right ankle strain Activity Restrictions/Additional Instructions: Pain to left foot and ankle after kicking counter in anger earlier today. X-rays foot and ankle without obvious fractures per Radiology report. Too painful to bear weight. We will off weight with use of crutches for now, in place in walking boot. Rest, ice, elevation. Take Tylenol and or Motrin as needed for pain control. Recheck with your regular doctor in the next couple of days. Under this/nearest emergency department for any change worsening symptoms or any concerns prior. Prescriptions: No Action fluticasone propionate [Flonase Allergy Relief] 50 mcg/actuation spray,suspension 1 spray intranasal BID PRN (Reason: nasal congestion) Qty: 16 0RF Rx Instructions: administer into each nostril Stand Alone Forms: Patient Portal/API
[2025-01-30 02:11] VITALS: BP 118/53; PULSE 75; O2SAT 99
[2025-01-30 02:30] VITALS: PULSE 67; RESP 17; O2SAT 99
== END 2025-01-30 02:58 | disposition home or self-care (01) ==
PROVIDERS: Emergency Provider Emergency Medicine
DX: S96.912A Strain of unspecified muscle and tendon at ankle and foot level, left foot, initial encounter (principal); S90.32XA Contusion of left foot, initial encounter; W22.09XA Striking against other stationary object, initial encounter
CPT/HCPCS: 73610; 73630; 99283